=== PATIENT | female | born 1965 | race Caucasian/White ===

== ENCOUNTER 2020-09-03 16:08 | Emergency (ER) | payer OTHER ==
[2020-09-03] MEDS ORDERED: ACETAMINOPHEN 325 MG TABLET (FP) PO ONE (16:28)
[2020-09-03 16:34] VITALS: BP 145/94; PULSE 94; TEMP 97.9; BMI 26.0
[2020-09-03] MEDS ORDERED: ACETAMINOPHEN 325 MG TABLET (FP) ONE (18:18)
== END 2020-09-03 19:05 | disposition home or self-care (01) ==
LOC: FER 16:08
DX: M54.2 Cervicalgia (principal); M54.5 Low back pain
CPT/HCPCS: 70450-TC; 72125-TC; 72128-TC; 99283-25